=== PATIENT | male | born 1960 | race Caucasian/White ===

== ENCOUNTER → 2016-09-07 | Outpatient (CLI) | payer OTHER ==
[~2016-09-07] MED LIST: ASPIR 8181 M1 PO; ASPIRIN E.C.81 M1 PO; AUGMENTIN500 MG PO; ENDOCET 5-3251 EACH PO; GLIPIZIDE10 MG PO; Glucotrol PO; LISINOPRIL10 MG PO; METFORMIN HCL500 MG PO; NAPROSYN500 MG PO; NO MEDS; NOHOMEMEDS; OMEPRAZOLE40 M1 PO
== END | disposition home or self-care (01) ==
LOC: RAD 14:54
DX: M48.06 Spinal stenosis, lumbar region (principal); M12.88 Other specific arthropathies, not elsewhere classified, other specified site
CPT/HCPCS: 72114

== ENCOUNTER → 2016-10-01 | Outpatient (CLI) | payer OTHER | END | disposition home or self-care (01) | LOC: RAD 14:17 | DX: G58.8 Other specified mononeuropathies (principal) | CPT/HCPCS: 71111 ==

== ENCOUNTER → 2017-07-08 | Outpatient (CLI) | payer OTHER | END | disposition home or self-care (01) | LOC: RAD 07:12 | DX: M16.11 Unilateral primary osteoarthritis, right hip (principal); M46.97 Unspecified inflammatory spondylopathy, lumbosacral region | CPT/HCPCS: 72100; 73502 ==